=== PATIENT | male | born 1970 | race Caucasian/White ===

== ENCOUNTER 2023-06-05 20:30 | Inpatient (IN) | payer MEDICAID, SELFPAY ==
[~2023-06-05] VITALS: Ht 188 cm; Wt 77.3 kg
[2023-06-05 23:01] LABS: BASO % 0.2 % (0.0-1.0); EOS % 0.2 % (0.0-3.0); HEMATOCRIT 38.4 % (42.0-52.0); HEMOGLOBIN 13.2 g/dl (13.5-17.5); LYMPH # 1.2 10^3/uL (1.5-5.0); LYMPH % 9.7 % (24.0-44.0); MEAN CORPUSCULAR HEMOGLOBIN 33.6 pg (27.0-33.0); MEAN CORPUSCULAR HGB CONC 34.4 g/dl (32.0-36.5); MEAN CORPUSCULAR VOLUME 97.7 fl (80.0-96.0); MONO % 8.2 % (2.0-8.0); NEUTROPHILS # 10.3 10^3/uL (1.5-8.5); NEUTROPHILS % 81.5 % (36.0-66.0); PLATELET COUNT, AUTOMATED 205 10^3/uL (150-450); RED BLOOD COUNT 3.93 10^6/uL (4.30-6.10); WHITE BLOOD COUNT 12.6 10^3/uL (4.0-10.0)
[2023-06-05 23:14] LABS: BLOOD UREA NITROGEN 7 MG/DL (9-23); CALCIUM LEVEL 8.3 MG/DL (8.5-10.1); CARBON DIOXIDE LEVEL 22 MMOL/L (20-31); CHLORIDE LEVEL 99 MMOL/L (98-107); CREATININE FOR GFR 1.03 MG/DL (0.70-1.30); GLOMERULAR FILTRATION RATE > 60.0 (>56); GLUCOSE, FASTING 91 MG/DL (60-100); POTASSIUM SERUM 3.7 MMOL/L (3.5-5.1); SODIUM LEVEL 131 MMOL/L (136-145)
[2023-06-05 23:36] LABS: RSV AMPLIFICATION NEGATIVE (NEGATIVE)
[2023-06-06] VITALS (10 sets, daily range): BP systolic 97–119; BP diastolic 60–75; TEMP 97.2–98.4; O2SAT 54–98
[2023-06-06] MEDS ORDERED: LORazepam 2 MG TAB PO PRN (02:00)
[2023-06-06] MEDS ORDERED: MORPHINE 2 MG/ML 1ML VIAL IV PRN ×2 (02:10→10:40)
[2023-06-06] MEDS ORDERED: ACETAMINOPHEN 500 MG TAB PO PRN (02:10)
[2023-06-06] MEDS ORDERED: HOME MED LIST COMPLETE! XX SCH (02:20)
[2023-06-06] MEDS: THIAMINE 100 MG TAB PO SCH ×3 (02:52→20:46)
[2023-06-06 08:15] LABS: BASO % 0.2 % (0.0-1.0); EOS # 0.1 10^3/uL (0.0-0.5); EOS % 0.7 % (0.0-3.0); HEMATOCRIT 39.7 % (42.0-52.0); HEMOGLOBIN 13.6 g/dl (13.5-17.5); LYMPH # 1.4 10^3/uL (1.5-5.0); LYMPH % 15.6 % (24.0-44.0); MEAN CORPUSCULAR HEMOGLOBIN 33.9 pg (27.0-33.0); MEAN CORPUSCULAR HGB CONC 34.3 g/dl (32.0-36.5); MONO # 1.2 10^3/uL (0.0-0.8); MONO % 13.4 % (2.0-8.0); NEUTROPHILS # 6.2 10^3/uL (1.5-8.5); NEUTROPHILS % 69.8 % (36.0-66.0); PLATELET COUNT, AUTOMATED 221 10^3/uL (150-450); RED BLOOD COUNT 4.01 10^6/uL (4.30-6.10); WHITE BLOOD COUNT 8.9 10^3/uL (4.0-10.0)
[2023-06-06] MEDS: FOLIC ACID 1MG TAB PO SCH (08:30)
[2023-06-06] MEDS: MULTIVITAMINS/MINERALS THERAP 1 TAB PO SCH (08:30)
[2023-06-06 08:51] LABS: BLOOD UREA NITROGEN 6 MG/DL (9-23); CALCIUM LEVEL 8.8 MG/DL (8.5-10.1); CARBON DIOXIDE LEVEL 23 MMOL/L (20-31); CHLORIDE LEVEL 108 MMOL/L (98-107); CREATININE FOR GFR 0.93 MG/DL (0.70-1.30); GLOMERULAR FILTRATION RATE > 60.0 (>56); GLUCOSE, FASTING 86 MG/DL (60-100); POTASSIUM SERUM 4.7 MMOL/L (3.5-5.1); SODIUM LEVEL 139 MMOL/L (136-145)
[2023-06-06] MEDS ORDERED: NS 1,000 ML IV SCH (11:30)
[2023-06-06] MEDS ORDERED: IPRATROPIUM 0.5MG/ALBUTEROL 2.5MG INH SOL UD 3ML (DUONEB) NEB SCH (12:00)
[2023-06-06] MEDS: PERCOCET 5MG/325MG TAB PO PRN (15:16)
[2023-06-06] MEDS ORDERED: LIDOCAINE 2% 100MG/5ML SDV (FOR ANES.) As Ordered ONE (17:15)
[2023-06-06] MEDS ORDERED: propofoL 200 MG/20 ML VIAL As Ordered ONE (17:15)
[2023-06-06] MEDS ORDERED: MIDAZOLAM INJ 2MG/2ML VIAL As Ordered ONE (17:15)
[2023-06-06] MEDS ORDERED: fentaNYL 100 MCG/2 ML INJECTION As Ordered ONE (17:15)
[2023-06-06] MEDS ORDERED: ONDANSETRON 4MG 2ML VIAL As Ordered ONE (17:15)
[2023-06-06] MEDS ORDERED: ceFAZolin 2 GM/D5W 50 ML IV BAG As Ordered ONE (17:23)
[2023-06-06] MEDS ORDERED: ACETAMINOPHEN 1000MG 100ML IV BAG As Ordered ONE (17:38)
[2023-06-06] MEDS ORDERED: HYDROmorphone HCL 2MG/ML 1ML VIAL As Ordered ONE (18:01)
[2023-06-06] MEDS ORDERED: BACITRACIN OINTMENT 30GM TUBE As Ordered ONE (19:20)
[2023-06-06] MEDS ORDERED: fentaNYL 100 MCG/2 ML INJECTION IV PRN (19:20)
[2023-06-06] MEDS ORDERED: oxyCODONE 5MG TAB PO PRN (19:20)
[2023-06-06] MEDS ORDERED: HYDROMORPHONE HCL 0.5 MG/ 0.5 ML SYRINGE IV PRN (19:20)
[2023-06-06] MEDS ORDERED: ONDANSETRON 4MG 2ML VIAL IV PRN (19:20)
[2023-06-06] MEDS ORDERED: MEPERIDINE 25 MG/ML 1ML VIAL IV PRN (19:20)
[2023-06-06] MEDS ORDERED: KETOROLAC 60MG 2ML VIAL As Ordered ONE (19:43)
[2023-06-06] MEDS: IPRATROPIUM 0.5MG/ALBUTEROL 2.5MG INH SOL UD 3ML (DUONEB) NEB SCH (21:42)
[2023-06-07 01:24] VITALS: BP 102/59; TEMP 98.2; O2SAT 98
[2023-06-07] MEDS: ceFAZolin SOD 1 GM in D5W MINI-BAG PLUS 50 ML IV SCH ×2 (01:24→08:25)
[2023-06-07] MEDS: IPRATROPIUM 0.5MG/ALBUTEROL 2.5MG INH SOL UD 3ML (DUONEB) NEB SCH ×2 (01:34→08:00)
[2023-06-07 02:22] VITALS: BP 103/64
[2023-06-07] MEDS: PERCOCET 5MG/325MG TAB PO PRN ×2 (02:22→08:28)
[2023-06-07 02:23] VITALS: BP 103/64; TEMP 98.2; O2SAT 99
[2023-06-07 05:54] VITALS: BP 93/60; TEMP 98.2; O2SAT 99
[2023-06-07 06:23] LABS: BASO % 0.1 % (0.0-1.0); EOS % 0.1 % (0.0-3.0); HEMATOCRIT 35.3 % (42.0-52.0); HEMOGLOBIN 11.7 g/dl (13.5-17.5); LYMPH # 0.8 10^3/uL (1.5-5.0); LYMPH % 8.6 % (24.0-44.0); MEAN CORPUSCULAR HEMOGLOBIN 33.8 pg (27.0-33.0); MEAN CORPUSCULAR HGB CONC 33.1 g/dl (32.0-36.5); MONO # 1.2 10^3/uL (0.0-0.8); MONO % 12.7 % (2.0-8.0); NEUTROPHILS # 7.3 10^3/uL (1.5-8.5); NEUTROPHILS % 78.1 % (36.0-66.0); PLATELET COUNT, AUTOMATED 184 10^3/uL (150-450); RED BLOOD COUNT 3.46 10^6/uL (4.30-6.10); WHITE BLOOD COUNT 9.3 10^3/uL (4.0-10.0)
[2023-06-07 06:43] LABS: BLOOD UREA NITROGEN 9 MG/DL (9-23); CALCIUM LEVEL 8.2 MG/DL (8.5-10.1); CARBON DIOXIDE LEVEL 26 MMOL/L (20-31); CHLORIDE LEVEL 106 MMOL/L (98-107); CREATININE FOR GFR 1.03 MG/DL (0.70-1.30); GLOMERULAR FILTRATION RATE > 60.0 (>56); GLUCOSE, FASTING 108 MG/DL (60-100); MAGNESIUM LEVEL 2.1 MG/DL (1.8-2.4); POTASSIUM SERUM 4.9 MMOL/L (3.5-5.1); SODIUM LEVEL 139 MMOL/L (136-145)
[2023-06-07 07:00] VITALS: BP 93/60
[2023-06-07] MEDS: MULTIVITAMINS/MINERALS THERAP 1 TAB PO SCH (08:24)
[2023-06-07] MEDS: THIAMINE 100 MG TAB PO SCH (08:24)
[2023-06-07] MEDS: FOLIC ACID 1MG TAB PO SCH (08:24)
[2023-06-07] MEDS ORDERED: ACET-683 PO (11:06)
[2023-06-07] MEDS ORDERED: OXYC1TAB23 PO (11:06)
[2023-06-07] MEDS ORDERED: ASPI81CH33 PO (11:06)
[2023-06-07] MEDS ORDERED: ENOXAPARIN 40MG/0.4ML SYRINGE (J1650 PER 10MG) SC SCH (19:00)
== END 2023-06-07 13:13 | disposition home or self-care (01) | DRG 313 ==
LOC: M ED 20:30 → M ED INP 23:52 → M MS4PR 06-06 01:47
PROVIDERS: ADMIT Family Medicine; ATTEND Student in an Organized Health Care Education/Training Program
PROC: 0QSH04Z Reposition Left Tibia with Internal Fixation Device, Open Approach (ICD-10-PCS; principal; 2023-06-06 15:30)
DX: S82.432A Displaced oblique fracture of shaft of left fibula, initial encounter for closed fracture (principal); S82.242A Displaced spiral fracture of shaft of left tibia, initial encounter for closed fracture; F17.210 Nicotine dependence, cigarettes, uncomplicated; F10.20 Alcohol dependence, uncomplicated; Z20.822 Contact with and (suspected) exposure to COVID-19; W18.42XA Slipping, tripping and stumbling without falling due to stepping into hole or opening, initial encounter; Y92.009 Unspecified place in unspecified non-institutional (private) residence as the place of occurrence of the external cause

== ENCOUNTER → 2023-06-12 | Outpatient (CLI) | payer MEDICAID ==
[~2023-06-12] MED LIST: ACET-683 PO; ASPI81CH33 PO; OXYC1TAB23 PO
== END ==
LOC: M SOG 08:03
PROVIDERS: ATTEND Physician Assistant
DX: Z47.89 Encounter for other orthopedic aftercare (principal); S82.252D Displaced comminuted fracture of shaft of left tibia, subsequent encounter for closed fracture with routine healing

== ENCOUNTER → 2023-07-06 | Outpatient (CLI) | payer MEDICAID | LOC: M SOG 08:02 | PROVIDERS: ATTEND Physician Assistant | DX: S82.202D Unspecified fracture of shaft of left tibia, subsequent encounter for closed fracture with routine healing (principal); S82.242D Displaced spiral fracture of shaft of left tibia, subsequent encounter for closed fracture with routine healing ==

== ENCOUNTER → 2023-08-07 | Outpatient (CLI) | payer MEDICAID | LOC: M SOG 08:42 | PROVIDERS: ATTEND Physician Assistant | DX: S82.202D Unspecified fracture of shaft of left tibia, subsequent encounter for closed fracture with routine healing (principal); S82.432D Displaced oblique fracture of shaft of left fibula, subsequent encounter for closed fracture with routine healing; Y99.8 Other external cause status; Y92.89 Other specified places as the place of occurrence of the external cause ==

== ENCOUNTER → 2023-09-18 | Outpatient (CLI) | payer OTHER | LOC: M SOG 08:01 | PROVIDERS: ATTEND Physician Assistant | DX: S82.202D Unspecified fracture of shaft of left tibia, subsequent encounter for closed fracture with routine healing (principal); Z53.9 Procedure and treatment not carried out, unspecified reason ==

== ENCOUNTER → 2023-09-21 | Outpatient (CLI) | payer OTHER | LOC: M SOG 11:10 | PROVIDERS: ATTEND Physician Assistant | DX: S82.202D Unspecified fracture of shaft of left tibia, subsequent encounter for closed fracture with routine healing (principal) ==

== ENCOUNTER → 2023-11-02 | Outpatient (CLI) | payer OTHER | LOC: M SOG 07:55 | PROVIDERS: ATTEND Physician Assistant | DX: S82.202D Unspecified fracture of shaft of left tibia, subsequent encounter for closed fracture with routine healing (principal); Z53.9 Procedure and treatment not carried out, unspecified reason ==

== ENCOUNTER → 2023-11-07 | Outpatient (CLI) | payer OTHER | LOC: M SOG 07:54 | PROVIDERS: ATTEND Physician Assistant | DX: S82.202D Unspecified fracture of shaft of left tibia, subsequent encounter for closed fracture with routine healing (principal) ==